=== PATIENT | male | born 1955 | race Caucasian/White ===

== ENCOUNTER 2020-11-17 04:34 | Day surgery (SDC) | payer OTHER ==
[2020-11-16 11:36] VITALS: BMI 26.5
[2020-11-17 09:53] VITALS: TEMP 97.8
[2020-11-17 10:32] VITALS: BP 151/75; PULSE 53
== END 2020-11-17 10:43 | disposition home or self-care (01) ==
LOC: JASU-ENDO 04:34
PROVIDERS: ATTEND Internal Medicine Gastroenterology
PROC: 0DJD8ZZ Inspection of Lower Intestinal Tract, Via Natural or Artificial Opening Endoscopic (ICD-10-PCS; principal; 2020-11-17 09:30)
DX: K50.90 Crohn's disease, unspecified, without complications (principal); K56.699 Other intestinal obstruction unspecified as to partial versus complete obstruction; Z98.0 Intestinal bypass and anastomosis status